=== PATIENT | female | born 1975 | race Two or more races ===

== ENCOUNTER 2024-11-15 22:11 | Outpatient (CLI) | payer OTHER, SELFPAY | END 2024-11-15 22:12 | disposition home or self-care (01) | LOC: AMB 11-18 10:42 | PROVIDERS: Visit Provider Emergency Medicine | DX: S19.9XXA Unspecified injury of neck, initial encounter (principal); V43.62XA Car passenger injured in collision with other type car in traffic accident, initial encounter; Y92.481 Parking lot as the place of occurrence of the external cause | CPT/HCPCS: A0998 ==